=== PATIENT | male | born 1965 | race Caucasian/White ===

== ENCOUNTER 2022-12-06 10:53 | Inpatient (IN) | payer MEDICARE ==
[~2022-12-06] VITALS: Ht 165.1 cm; Wt 68.0 kg
[2022-12-06 11:59] LABS: BASOPHILS # (AUTO) 0.1 (0.0-0.1); EOSINOPHILS # (AUTO) 0.1 (0.0-0.4); EOSINOPHILS % 1.1 % (0.0-6.0); HEMATOCRIT 25.5 % (38.2-49.6); LYMPHOCYTES % 17.1 % (18.0-39.1); MEAN CORPUSCULAR HEMOGLOBIN 20.1 pg (28-32); MEAN CORPUSCULAR HGB CONC 25.5 g/dL (31-35); MEAN CORPUSCULAR VOLUME 78.7 fL (81-99); MONOCYTES # (AUTO) 0.5 (0.2-0.8); MONOCYTES % 8.2 % (4.4-11.3); NEUTROPHILS % 70.9 % (38.7-80.0); PLATELET COUNT 155 x10e3/uL (140-360); RED BLOOD COUNT 3.24 x10e6/uL (4.3-5.7); RED CELL DISTRIBUTION WIDTH 20.9 % (11.7-14.4)
[2022-12-06 12:01] LABS: HEMOGLOBIN 6.5 g/dL (14.0-18.0)
[2022-12-06 12:15] LABS: INR 1.26; PROTHROMBIN TIME 16.3 seconds (11.9-14.5)
[2022-12-06 12:16] LABS: ALBUMIN 2.9 g/dL (3.5-5.0); ALBUMIN/GLOBULIN RATIO 0.8 (0.8-2.0); ANION GAP 14.2 mmol/L (8-16); CALCIUM 8.5 mg/dL (8.4-10.2); CREATININE, SERUM 1.07 mg/dL (0.72-1.25); PARTIAL THROMBOPLASTIN TIME 35.1 seconds (23.8-35.5); POTASSIUM 4.2 mmol/L (3.5-5.1)
[2022-12-06 12:23] LABS: CREATINE KINASE MB 2.4 ng/mL (0-5.0)
[2022-12-06] MEDS ORDERED: SODIUM CHLORIDE 0.9% 250ML 250 ML IV ONE (12:45)
[2022-12-06 12:50] LABS: ANISOCYTOSIS MODERATE; HYPOCHROMASIA MODERATE; MICROCYTOSIS MODERATE; PLATELET ESTIMATE ADEQUATE; PLATELET MORPHOLOGY COMMENT FEW LARGE; POLYCHROMASIA FEW; RBC MORPHOLOGY COMMENT ABNORMAL
[2022-12-06] MEDS ORDERED: ONDANSETRON HCL INJ 2MG/ML 2ML 2 MG/ML VIAL IV PRN (13:00)
[2022-12-06] MEDS ORDERED: Morphine 4mg INJECTION 4 MG/ML INJ IV PRN (13:00)
[2022-12-06] MEDS ORDERED: SODIUM CHLORIDE FLUSH 10 ML SYR INJ PRN (13:00)
[2022-12-06 14:08] LABS: CLARITY,URINE CLEAR (CLEAR); COLOR,URINE YELLOW (YELLOW); KETONES,URINE NEGATIVE (NEGATIVE); LEUKOCYTE ESTERASE ,URINE NEGATIVE (NEGATIVE); NITRITE,URINE NEGATIVE (NEGATIVE); PROTEIN,URINE DIPSTICK 1+ (NEGATIVE)
[2022-12-06 16:15] VITALS: BP 138/90
[2022-12-06] MEDS ORDERED: SODIUM CHLORIDE 0.9% 250ML 250 ML ONE (17:03)
[2022-12-06] MEDS ORDERED: NO HOME MEDS PER PT (18:13)
[2022-12-06 20:00] VITALS: BP 139/96
[2022-12-06 21:00] VITALS: BP 139/96
[2022-12-07] VITALS (8 sets, daily range): BP systolic 112–145; BP diastolic 80–97
[2022-12-07 06:22] LABS: BASOPHILS # (AUTO) 0.1 (0.0-0.1); BASOPHILS % 1.4 % (0.0-1.0); EOSINOPHILS # (AUTO) 0.1 (0.0-0.4); EOSINOPHILS % 1.9 % (0.0-6.0); HEMATOCRIT 26.3 % (38.2-49.6); LYMPHOCYTES # (AUTO) 0.9 (1.0-3.2); LYMPHOCYTES % 14.5 % (18.0-39.1); MEAN CORPUSCULAR HEMOGLOBIN 21.3 pg (28-32); MEAN CORPUSCULAR HGB CONC 26.6 g/dL (31-35); MEAN CORPUSCULAR VOLUME 79.9 fL (81-99); MONOCYTES # (AUTO) 0.5 (0.2-0.8); MONOCYTES % 8.3 % (4.4-11.3); NEUTROPHILS # (AUTO) 4.7 (2.1-6.9); NEUTROPHILS % 73.4 % (38.7-80.0); PLATELET COUNT 146 x10e3/uL (140-360); RED BLOOD COUNT 3.29 x10e6/uL (4.3-5.7); RED CELL DISTRIBUTION WIDTH 20.9 % (11.7-14.4)
[2022-12-07 06:31] LABS: ANION GAP 13.9 mmol/L (8-16); CALCIUM 8.3 mg/dL (8.4-10.2); CREATININE, SERUM 1.08 mg/dL (0.72-1.25); POTASSIUM 3.9 mmol/L (3.5-5.1)
[2022-12-07 06:32] LABS: ALBUMIN 2.7 g/dL (3.5-5.0); ALBUMIN/GLOBULIN RATIO 0.8 (0.8-2.0)
[2022-12-07 06:42] LABS: CREATINE KINASE MB 2.1 ng/mL (0-5.0)
[2022-12-07 08:14] LABS: PLATELET ESTIMATE SLIGHTLY DECREASED
[2022-12-07 08:15] LABS: ANISOCYTOSIS SLIGHT; PLATELET MORPHOLOGY COMMENT NORMAL; RBC MORPHOLOGY COMMENT NORMAL
[2022-12-07] MEDS ORDERED: SODIUM CHLORIDE 0.9% 250ML 250 ML IV ONE (10:45)
[2022-12-07 11:10] LABS: THYROID STIMULATING HORMONE 3.153 uIU/mL (0.350-4.940)
[2022-12-07] MEDS: ACETAMINOPHEN 325 MG TAB PO PRN (12:18)
[2022-12-07] MEDS ORDERED: ONDANSETRON HCL 4 MG ORAL DISINTEGRATING TAB PO PRN (14:30)
[2022-12-07] MEDS ORDERED: SODIUM CHLORIDE 0.9% 250ML 250 ML ONE ×2 (14:53→22:29)
[2022-12-07 15:15] LABS: CREATINE KINASE MB 2.3 ng/mL (0-5.0)
[2022-12-07] MEDS: FUROSEMIDE INJ 10 MG/ML 2 ML VIAL IV PRN (18:41)
[2022-12-07] MEDS: NICOTINE 21 MG/EA PATCH TOP SCH (20:06)
[2022-12-07] MEDS ORDERED: NICOTINE 21 MG/EA PATCH TOP ONE (21:00)
[2022-12-08] VITALS (8 sets, daily range): BP systolic 109–133; BP diastolic 78–104
[2022-12-08] MEDS: FUROSEMIDE INJ 10 MG/ML 2 ML VIAL IV PRN (02:14)
[2022-12-08 05:54] LABS: BASOPHILS # (AUTO) 0.1 (0.0-0.1); BASOPHILS % 1.6 % (0.0-1.0); EOSINOPHILS # (AUTO) 0.1 (0.0-0.4); EOSINOPHILS % 1.8 % (0.0-6.0); HEMATOCRIT 31.8 % (38.2-49.6); LYMPHOCYTES # (AUTO) 0.8 (1.0-3.2); MEAN CORPUSCULAR HEMOGLOBIN 23.1 pg (28-32); MEAN CORPUSCULAR HGB CONC 28.3 g/dL (31-35); MEAN CORPUSCULAR VOLUME 81.7 fL (81-99); MONOCYTES # (AUTO) 0.5 (0.2-0.8); MONOCYTES % 9.9 % (4.4-11.3); NEUTROPHILS # (AUTO) 3.4 (2.1-6.9); NEUTROPHILS % 69.1 % (38.7-80.0); PLATELET COUNT 113 x10e3/uL (140-360); RED BLOOD COUNT 3.89 x10e6/uL (4.3-5.7); RED CELL DISTRIBUTION WIDTH 20.5 % (11.7-14.4)
[2022-12-08 06:11] LABS: ANION GAP 12.5 mmol/L (8-16); CALCIUM 8.8 mg/dL (8.4-10.2); CREATININE, SERUM 1.14 mg/dL (0.72-1.25); POTASSIUM 3.5 mmol/L (3.5-5.1)
[2022-12-08 07:00] LABS: ANISOCYTOSIS MODERATE; HYPOCHROMASIA MODERATE; PLATELET ESTIMATE SLIGHTLY DECREASED; PLATELET MORPHOLOGY COMMENT NORMAL; RBC MORPHOLOGY COMMENT ABNORMAL
[2022-12-08] MEDS ORDERED: FUROSEMIDE INJ 10 MG/ML 4 ML VIAL IV SCH (11:00)
[2022-12-08] MEDS ORDERED: SODIUM FERRIC GLUCONATE COMPLX 125 MG in SODIUM CHLORIDE 0.9% 100 ML IV ONE (12:00)
[2022-12-08] MEDS: POTASSIUM CHLORIDE 10MEQ EA PO SCH (12:01)
[2022-12-08] MEDS: ACETAMINOPHEN 325 MG TAB PO PRN ×2 (12:02→19:27)
[2022-12-08] MEDS: FUROSEMIDE INJ 10 MG/ML 4 ML VIAL IV SCH (18:21)
[2022-12-08] MEDS: NICOTINE 21 MG/EA PATCH TOP SCH (20:10)
[2022-12-08] MEDS: ATORVASTATIN 10 MG TAB PO SCH (20:10)
[2022-12-08] MEDS: TRAZODONE HCL 50 MG TAB PO PRN (22:02)
[2022-12-09] VITALS (9 sets, daily range): BP systolic 81–128; BP diastolic 48–82
[2022-12-09] MEDS ORDERED: CYANOCOBALAMIN INJ 1,000 MCG/ML VIAL IM ONE (01:45)
[2022-12-09 08:33] LABS: ANION GAP 13.6 mmol/L (8-16); CALCIUM 8.6 mg/dL (8.4-10.2); CREATININE, SERUM 1.1 mg/dL (0.72-1.25); POTASSIUM 3.6 mmol/L (3.5-5.1)
[2022-12-09] MEDS: CYANOCOBALAMIN INJ 1,000 MCG/ML VIAL IM SCH (09:00)
[2022-12-09] MEDS: SPIRONOLACTONE 25 MG TAB PO SCH (09:19)
[2022-12-09] MEDS: FUROSEMIDE INJ 10 MG/ML 4 ML VIAL IV SCH ×2 (09:19→18:20)
[2022-12-09] MEDS: VALSARTAN/SACUBITRIL 24MG/26MG 1 EA TAB PO SCH ×2 (09:19→18:20)
[2022-12-09] MEDS: POTASSIUM CHLORIDE 10MEQ EA PO SCH (09:19)
[2022-12-09] MEDS: METOPROLOL TARTRATE 25 MG TAB PO SCH (09:20)
[2022-12-09] MEDS: TRAZODONE HCL 50 MG TAB PO PRN (20:07)
[2022-12-09] MEDS: NICOTINE 21 MG/EA PATCH TOP SCH (20:07)
[2022-12-09] MEDS: ATORVASTATIN 10 MG TAB PO SCH (20:07)
[2022-12-10] VITALS: BP 98/56
[2022-12-10 04:00] VITALS: BP 109/65
[2022-12-10 06:18] LABS: BASOPHILS # (AUTO) 0.1 (0.0-0.1); EOSINOPHILS # (AUTO) 0.1 (0.0-0.4); EOSINOPHILS % 1.6 % (0.0-6.0); HEMATOCRIT 32.4 % (38.2-49.6); HEMOGLOBIN 9.8 g/dL (14.0-18.0); LYMPHOCYTES # (AUTO) 1.1 (1.0-3.2); LYMPHOCYTES % 17.7 % (18.0-39.1); MEAN CORPUSCULAR HEMOGLOBIN 25.5 pg (28-32); MEAN CORPUSCULAR HGB CONC 30.2 g/dL (31-35); MEAN CORPUSCULAR VOLUME 84.2 fL (81-99); MONOCYTES # (AUTO) 0.7 (0.2-0.8); MONOCYTES % 11.7 % (4.4-11.3); NEUTROPHILS % 66.3 % (38.7-80.0); PLATELET COUNT 143 x10e3/uL (140-360); RED BLOOD COUNT 3.85 x10e6/uL (4.3-5.7); RED CELL DISTRIBUTION WIDTH 24.3 % (11.7-14.4)
[2022-12-10 07:54] VITALS: BP 114/76
[2022-12-10 07:56] VITALS: BP 114/76
[2022-12-10] MEDS: POTASSIUM CHLORIDE 10MEQ EA PO SCH (08:53)
[2022-12-10] MEDS: CYANOCOBALAMIN INJ 1,000 MCG/ML VIAL IM SCH (08:53)
[2022-12-10] MEDS: METOPROLOL TARTRATE 25 MG TAB PO SCH (08:54)
[2022-12-10] MEDS: SPIRONOLACTONE 25 MG TAB PO SCH (08:54)
[2022-12-10] MEDS: FUROSEMIDE INJ 10 MG/ML 4 ML VIAL IV SCH (08:54)
[2022-12-10] MEDS: VALSARTAN/SACUBITRIL 24MG/26MG 1 EA TAB PO SCH (08:54)
[2022-12-10] MEDS ORDERED: IRON SUCROSE 100 MG in SODIUM CHLORIDE 0.9% 100 ML IV SCH (09:00)
[2022-12-10 11:30] VITALS: BP 100/83
[2022-12-10] MEDS ORDERED: LASIX40 MG PO (12:19)
[2022-12-10] MEDS ORDERED: LIPITOR10 MG PO (12:19)
[2022-12-10] MEDS ORDERED: KLOR-CON M2020 MEQ PO (12:20)
[2022-12-10] MEDS ORDERED: LOPRESSOR25 MG PO (12:20)
[2022-12-10] MEDS ORDERED: ENTRESTO 24 MG1 EACH PO (12:21)
[2022-12-10] MEDS ORDERED: PROAIR DIGIHAL90 MCG INH (12:22)
[2022-12-10] MEDS ORDERED: FEROSUL325 MG PO (12:25)
[2022-12-11] MEDS ORDERED: FUROSEMIDE 40 MG TAB PO SCH (09:00)
== END 2022-12-10 13:39 | disposition home or self-care (01) | DRG 291 ==
LOC: ER 10:56 → ERHOLD 12:54 → MED/SURG3 16:08 → OBSVTOIN 12-09 12:26
PROVIDERS: ADMIT Internal Medicine; ATTEND Internal Medicine
PROC: 30233N1 Transfusion of Nonautologous Red Blood Cells into Peripheral Vein, Percutaneous Approach (ICD-10-PCS; principal; 2022-12-06)
DX: I11.0 Hypertensive heart disease with heart failure (principal); I50.23 Acute on chronic systolic (congestive) heart failure; I25.10 Atherosclerotic heart disease of native coronary artery without angina pectoris; G60.0 Hereditary motor and sensory neuropathy; Z95.5 Presence of coronary angioplasty implant and graft; Z91.199 Patient's noncompliance with other medical treatment and regimen due to unspecified reason; Z74.09 Other reduced mobility; J43.9 Emphysema, unspecified; F17.210 Nicotine dependence, cigarettes, uncomplicated; R60.0 Localized edema; D50.9 Iron deficiency anemia, unspecified; Z20.822 Contact with and (suspected) exposure to COVID-19
CPT/HCPCS: 0223U; 36415; 71045; 71046; 71260; 74177; 80048; 80053; 81001; 82378; 82550; 82553; 82607; 82728; 82746; 83036; 83540; 83880; 84443; 84466; 84484; 85025; 85045; 85610; 85730; 86850; 86900; 86920; 93005; 93306; 94799; 99284; G0378; J1756; J1940; J2916; J3420; J7050; P9016